=== PATIENT | male | born 1980 | race African-American/Black ===

== ENCOUNTER 2022-04-18 16:19 | Emergency (ER) | payer SELFPAY ==
[~2022-04-18] VITALS: Ht 243.8 cm; Wt 81.6 kg
[2022-04-18 16:19] VITALS: BP 133/73
--- NOTE | 2022-04-18 16:19 | NUR ---
BIBS C/O BILATERAL ANKLE PAIN S/P FALLING DOWN STAIRS AT 1500 -KO PAIN IS 7/10 ON PAIN SCALE PT ABLE TO AMBULATE ON HIS OWN
[2022-04-18] MEDS ORDERED: NAPROXEN 500 MG TABLET PO SCH (17:30)
[2022-04-18] MEDS ORDERED: NAPROXEN 250 MG TABLET ONE (17:38)
[2022-04-18] MEDS ORDERED: NAPR-1009 PO (18:51)
--- NOTE | 2022-04-18 19:29 | NUR ---
Patient discharged to home in stable condition. Written and verbal after care instructions given. Patient verbalizes understanding of instruction.
== END 2022-04-18 19:33 | disposition home or self-care (01) ==
LOC: ER 16:19
DX: S93.402A Sprain of unspecified ligament of left ankle, initial encounter (principal); S90.31XA Contusion of right foot, initial encounter; W10.8XXA Fall (on) (from) other stairs and steps, initial encounter; Y93.89 Activity, other specified; Y92.89 Other specified places as the place of occurrence of the external cause; Y99.8 Other external cause status
CPT/HCPCS: 73610-TC; 73650-TC